=== PATIENT | male | born 2000 | race Caucasian/White ===

== ENCOUNTER 2019-12-10 15:42 | Outpatient (CLI) | payer OTHER ==
[2019-12-10] MEDS ORDERED: GADOBUTROL 7.5 MMOL/7.5 ML VIAL ONE (16:13)
[2019-12-10] MEDS ORDERED: GADOBUTROL 7.5 MMOL/7.5 ML VIAL IVP ONE (16:53)
--- NOTE | 2019-12-10 18:41 | MRI Report ---
PROCEDURE: Brain W/WO INDICATIONS: TINNITUS CONTRAST: IV CONTRAST: Gadavist ml: 7 TECHNIQUE: Noncontrast axial T1 spin echo, axial T2 fast spin echo, sagittal and axial FLAIR, coronal T2 fast sp in echo, axial gradient echo, axial diffusion and ADC through the brain. In this patient, thin sectio n FFE 3-D images were obtained through the internal auditory canals. After the administration of cont rast, axial and coronal T1 spin echo with fat saturation through the brain. COMPARISON: None. FINDINGS: Image quality: Excellent. CSF spaces: Basal cisterns are patent. No extra-axial fluid collections. Ventricles are normal in size and shape. Brain: In this patient with this given history, scrutiny is given to internal auditory canals and th e cerebellopontine angle cisterns. No masses or abnormal enhancement can be seen at these sites. No midline shift. No intracranial bleeds or masses. No abnormal intracranial enhancement. There is cerebral volume loss for age. There is periventricular white matter chronic small vessel ischemic c hange. The brainstem appears normal. Diffusion-weighted images demonstrate no acute ischemic insult s. No chronic ischemic insults. Normal intravascular flow voids are present. Skull and face: Calvarial marrow is normal in signal. Orbits appear normal. Sinuses: Sinuses and mastoids appear clear. IMPRESSION: A cause of the patient's tinnitus is not observed. Specifically, no findings of masses or abnormal enhancement can be seen within the internal auditory canals or within the cerebellopontine angle cisterns. Reviewed by: Hua Gómez MD on 12/10/2019 5:40 PM AUNG Approved by: Hua Gómez MD on 12/10/2019 5:40 PM AKSTANISLAW Station ID: [id number]
== END 2019-12-10 15:43 | disposition home or self-care (01) ==
LOC: DI 15:42
PROVIDERS: ATTEND Nurse Practitioner Family
DX: H93.13 Tinnitus, bilateral (principal)
CPT/HCPCS: 70553; A9585

== ENCOUNTER 2020-11-23 08:49 | Emergency (ER) | payer OTHER ==
[2020-11-23 09:15] LABS: BASOPHILS % (AUTO) 0.5 %; EOSINOPHILS # (AUTO) 0.3 10^3/uL (0.0-0.7); HGB - HEMOGLOBIN 16.3 g/dL (14.0-18.0); LYMPHOCYTES # (AUTO) 1.7 10^3/uL (1.5-3.5); LYMPHOCYTES % (AUTO) 22.1 %; MEAN CORPUSCULAR HEMOGLOBIN 30.4 pg (27.0-31.0); MEAN CORPUSCULAR HGB CONC 33.3 g/dL (32.0-36.0); MEAN CORPUSCULAR VOLUME 91.4 fL (80.0-94.0); MONOCYTES # (AUTO) 0.8 10^3/uL (0.0-1.0); MONOCYTES % (AUTO) 10.7 %; NEUTROPHILS # (AUTO) 4.8 10^3/uL (1.5-6.6); NEUTROPHILS % (AUTO) 62.6 %; PLT - PLATELET COUNT 317 10^3/uL (130-450); RED BLOOD COUNT 5.36 10^6/uL (4.70-6.10); WHITE BLOOD COUNT 7.6 x10^3/uL (4.8-10.8)
[2020-11-23 09:21] LABS: BILIRUBIN,URINE NEGATIVE (NEGATIVE); GLUCOSE, URINE (UA) NEGATIVE (NEGATIVE); KETONES,URINE (UA) NEGATIVE (NEGATIVE); LEUKOCYTE ESTERASE, URINE NEGATIVE (NEGATIVE); NITRITE,URINE NEGATIVE (NEGATIVE); OCCULT BLOOD,URINE TRACE-INTA (NEGATIVE); PROTEIN,URINE NEGATIVE (NEGATIVE); UROBILINOGEN,URINE 0.2 (NORMAL) E.U./dL (NORMAL)
[2020-11-23 09:22] LABS: CLARITY,URINE CLEAR (CLEAR)
[2020-11-23 09:31] LABS: ALBUMIN/GLOBULIN RATIO 1.6 (1.0-2.2); BILIRUBIN,TOTAL 1.1 mg/dL (0.2-1.0); CALCIUM 9.6 mg/dL (8.5-10.3); CREATININE 0.8 mg/dL (0.6-1.2); POTASSIUM 4.2 mmol/L (3.5-5.0); TOTAL PROTEIN 8.1 g/dL (6.7-8.2)
--- NOTE | 2020-11-23 09:42 | ED Physician Documentation ---
PD HPI ABD PAIN - Stated complaint Stated Complaint: PX IN LOWER RT ABD - Chief complaint Chief Complaint: Abd Pain - History obtained from History obtained from: Patient - History of Present Illness Pain level max: 6 Pain level now: 4 Quality: Pain. No: Cramping, Aching Location: RLQ Radiation: No: Chest, , Lower back, Left flank, Left shoulder, Right flank, Right shoulder, Upper back Associated symptoms: No: Fever, Nausea, Vomiting, Diarrhea, Constipation - Additional information Additional information: Patient is a 20-year-old male who complains of right lower quadrant abdominal pain for the past 2 days. Worse with movement, better with rest. No change in appetite. No fevers. No nausea or vomiting. Nonradiating. Has not had similar symptoms previously. Review of Systems Ten Systems: 10 systems reviewed and negative Constitutional: denies: Fever, Chills Respiratory: denies: Cough GI: denies: Vomiting Skin: denies: Rash Musculoskeletal: denies: Neck pain, Back pain Neurologic: denies: Headache PD PAST MEDICAL HISTORY - Past Medical History Past Medical History: Yes Cardiovascular: Hypertension Respiratory: None Neuro: None Endocrine/Autoimmune: None GI: None : None HEENT: None Psych: None Musculoskeletal: None Derm: None - Past Surgical History Past Surgical History: No - Present Medications Home Medications: Ambulatory Orders Medication Instructions Recorded Confirmed Lisinopril [Zestril] 10 mg PO DAILY 11/23/20 11/23/20 - Allergies Allergies/Adverse Reactions: Allergies Allergy/AdvReac Type Severity Reaction Status Date / Time No Known Drug Allergies Allergy Verified 11/23/20 08:55 - Social History Does the pt smoke?: No Smoking Status: Never smoker Does the pt drink ETOH?: No Does the pt have substance abuse?: No - Immunizations Immunizations are current?: No Immunizations: Other immun not current PD ED PE NORMAL - Vitals Vital signs reviewed: Yes - General General: Alert and oriented X 3, No acute distress - HEENT HEENT: Moist mucous membranes - Neck Neck: Supple, no meningeal sign - Cardiac Cardiac: RRR, Strong equal pulses - Respiratory Respiratory: No respiratory distress, Clear bilaterally - Abdomen Abdomen: Soft, Non distended, Other (Tender palpation right lower quadrant. No peritoneal signs.) - Back Back: No CVA TTP - Derm Derm: Warm and dry - Extremities Extremities: No edema, No calf tenderness / cord - Neuro Neuro: Alert and oriented X 3 - Psych Psych: Normal mood, Normal affect Results - Vitals Vitals: Vital Signs - 24 hr 11/23/20 11/23/20 11/23/20 08:56 09:12 09:48 Temperature 36.5 C Heart Rate 91 88 80 Respiratory 18 18 16 Rate Blood Pressure 130/78 126/73 118/71 O2 Saturation 100 98 98 11/23/20 11:30 Temperature Heart Rate 83 Respiratory 16 Rate Blood Pressure 134/87 H O2 Saturation 100 Oxygen O2 Source Room air - Labs Labs: Laboratory Tests 11/23/20 11/23/20 11/23/20 09:05 09:05 09:05 WBC 7.6 RBC 5.36 Hgb 16.3 Hct 49.0 MCV 91.4 MCH 30.4 MCHC 33.3 RDW 13.0 Plt Count 317 MPV 9.0 Neut # (Auto) 4.8 Lymph # (Auto) 1.7 Mower # (Auto) 0.8 Eos # (Auto) 0.3 Baso # (Auto) 0.0 Absolute Nucleated RBC 0.00 Nucleated RBC % 0.0 Sodium 137 Potassium 4.2 Chloride 96 L Carbon Dioxide 32 Anion Gap 9.0 BUN 11 Creatinine 0.8 Estimated GFR (MDRD) 121 Glucose 92 Calcium 9.6 Total Bilirubin 1.1 H AST 28 ALT 42 Alkaline Phosphatase 73 Total Protein 8.1 Albumin 5.0 Globulin 3.1 Albumin/Globulin Ratio 1.6 Lipase 28 Urine Color YELLOW Urine Clarity CLEAR Urine pH 7.0 Ur Specific [place] 1.020 Urine Protein NEGATIVE Urine Glucose (UA) NEGATIVE Urine Ketones NEGATIVE Urine Occult Blood TRACE-INTA Urine Nitrite NEGATIVE Urine Bilirubin NEGATIVE Urine Urobilinogen 0.2 (NORMAL) Ur Leukocyte Esterase NEGATIVE Ur Microscopic Review NOT INDICATED Urine Culture Comments NOT INDICATED - Rads (name of study) CT abd/pelvis Radiology: Final report received, EMP read contemporaneously, See rad report PD MEDICAL DECISION MAKING - ED course Complexity details: reviewed results, re-evaluated patient, considered differential, d/w patient ED course: 20-year-old male with right lower quadrant abdominal pain. The appendix is not identified. Could be epiploic appendagitis? Discussed the case with Dr. Rosenbaum, general surgery on-call who came and evaluated the patient personally. The patient is decided to go home at this time and see how he progresses over the next 24 hours. No indication for antibiotics at this time. Patient will return tomorrow for repeat evaluation and repeat blood work. If he worsens, he will return sooner. Patient is well-appearing, nontoxic. Afebrile. Patient counseled regarding signs and symptoms for which I believe and urgent re- evaluation would be necessary. Patient with good understanding of and agreement to plan and is comfortable going home at this time This document was made in part using voice recognition software. While efforts are made to proofread this document, sound alike and grammatical errors may occur. IMPRESSION: 1. The appendix is not identified. There is a small amount of free fluid present in the right lower quadrant. There is mild inflammatory change in the fat near the cecum. Consider epiploic appendicitis. Cannot exclude appendiceal rupture. Recommend clinical correlation. Departure - Departure Disposition: 01 Home, Self Care Clinical Impression: Abdominal pain Qualifiers: Abdominal location: right lower quadrant Qualified Code(s): R10.31 - Right lower quadrant pain Condition: Good Instructions: ED Abdominal Pain Appendx Poss Follow-Up: here,tomorrow [Other] Comments: Return here tomorrow for a recheck of your abdomen and a recheck of your white blood cell count. Return sooner if you worsen. Discharge Date/Time: 11/23/20 12:00
[2020-11-23] MEDS ORDERED: IOPAMIDOL-300 50 ML VIAL ONE (09:49)
[2020-11-23] MEDS ORDERED: IOPAMIDOL-300 50 ML VIAL IVP ONE (10:06)
--- NOTE | 2020-11-23 11:25 | CT Report ---
PROCEDURE: Abdomen/Pelvis W INDICATIONS: RLQ abd pain CONTRAST: IV CONTRAST: Isovue 300 ml: 100 PO CONTRAST: *NO PO CONTRAST TECHNIQUE: After the administration of intravenous contrast, 5 mm thick sections acquired from the diaphragms to the symphysis. 5 mm thick coronal and sagittal reformats were acquired. For radiation dose reducti on, the following was used: automated exposure control, adjustment of mA and/or kV according to winston ent size. COMPARISON: None. FINDINGS: Image quality: Excellent. ABDOMEN: Lung bases: Lung bases are clear. Heart size is normal. Solid organs: Liver and spleen are normal in size and enhancement. Gallbladder is unremarkable Blayne iary system is non dilated. Pancreas enhances normally. No adrenal nodules. Kidneys demonstrate no rmal size and enhancement, without hydronephrosis. Peritoneum and bowel: Bowel loops demonstrate normal wall thickness and caliber. The appendix is not identified. There is trace fluid adjacent to the cecum. There is no obvious bowel wall thickening. T here is mild inflammatory change in the fat near the cecum. No fluid deep in the pelvis. No free air or abscess cavity. Nodes and vessels: There are mildly prominent lymph nodes in the right lower quadrant. No retroperit nash or mesenteric adenopathy by size criteria. Aorta and inferior vena cava are normal in size. Miscellaneous: No ventral hernias. PELVIS: Genitourinary: Bladder wall thickness is normal. Miscellaneous: No inguinal hernias or adenopathy. Bones: No suspicious bony lesions. No vertebral body compression fractures. IMPRESSION: 1. The appendix is not identified. There is a small amount of free fluid present in the right lower q uadrant. There is mild inflammatory change in the fat near the cecum. Consider epiploic appendicitis. Cannot exclude appendiceal rupture. Recommend clinical correlation. Above discussed with Azar Ko MD at the time of dictation. Reviewed by: Charles Hinton MD on 11/23/2020 11:24 AM PDT Approved by: Charles Hinton MD on 11/23/2020 11:24 AM PDT Station ID: [id number]
[2020-11-23 11:31] VITALS: BP 134/87
--- NOTE | 2020-11-23 12:17 | CONSULTATION NOTE ---
Surgery Consult - Consult Date Consult Date: 11/23/20 Requesting Provider: Maikel - Chief Complaint Chief Complaint: Right lower quadrant abdominal pain - Home Meds/Allergies Home Medications: Patient History Medication Instructions Recorded Confirmed Lisinopril [Zestril] 10 mg PO DAILY 11/23/20 11/23/20 Allergies/Adverse Reactions: Allergies Allergy/AdvReac Type Severity Reaction Status Date / Time No Known Drug Allergies Allergy Verified 11/23/20 08:55 - Vital Signs Vital Signs: Last Vital Signs Temp 36.5 C 11/23/20 08:56 Pulse 83 11/23/20 11:30 Resp 16 11/23/20 11:30 BP 134/87 H 11/23/20 11:30 Pulse Ox 100 11/23/20 11:30 - Lab Results Result Diagrams: 11/23/20 09:05 11/23/20 09:05 - Consultation Note Consultation Note: 20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 No vomiting or fever. Mild nausea. Pain has persisted. No previous abdominal surgery. Mother has IBS, but no hx of Crohn's or IBD in family. PMH: HTN Past surgery: none Exam: Afebrile, no distress CV: RRs M Lungs: clear Abdomen: not distended, tenderness in RLQ, negative Rovsing's sign, no mass, no guarding or rigidity. CT abd/pelvis: mild inflammation by cecum, but appendix not visualized ASSESS: Possible appendicitis. WBC normal, CT does not clearly show inflamed appendix. Discussed lap appendectomy with patient, and encouraged him to have surgery. After he discussed options with his on the phone, he decided to go home and return if pain worsens. After discussing with Dr Ko, patient will return tomorrow for reexam and CBC.
== END 2020-11-23 12:00 | disposition home or self-care (01) ==
LOC: ED 08:49
DX: R10.31 Right lower quadrant pain (principal); I10 Essential (primary) hypertension
CPT/HCPCS: 36415; 74177; 80053; 81003; 83690; 85025; 99284; Q9967; 81001; 87086

== ENCOUNTER 2020-11-24 09:56 | Day surgery (SDC) | payer OTHER ==
[2020-11-24 10:53] LABS: BASOPHILS % (AUTO) 0.4 %; EOSINOPHILS # (AUTO) 0.3 10^3/uL (0.0-0.7); EOSINOPHILS % (AUTO) 3.9 %; HCT - HEMATOCRIT 46.8 % (42.0-52.0); HGB - HEMOGLOBIN 15.5 g/dL (14.0-18.0); LYMPHOCYTES # (AUTO) 1.5 10^3/uL (1.5-3.5); LYMPHOCYTES % (AUTO) 22.1 %; MEAN CORPUSCULAR HEMOGLOBIN 30.2 pg (27.0-31.0); MEAN CORPUSCULAR HGB CONC 33.1 g/dL (32.0-36.0); MEAN CORPUSCULAR VOLUME 91.2 fL (80.0-94.0); MEAN PLATELET VOLUME 8.8 fL (7.4-11.4); MONOCYTES # (AUTO) 0.7 10^3/uL (0.0-1.0); MONOCYTES % (AUTO) 9.6 %; NEUTROPHILS # (AUTO) 4.5 10^3/uL (1.5-6.6); NEUTROPHILS % (AUTO) 63.7 %; PLT - PLATELET COUNT 296 10^3/uL (130-450); RED BLOOD COUNT 5.13 10^6/uL (4.70-6.10)
[2020-11-24 11:08] LABS: ALBUMIN 4.4 g/dL (3.2-5.5); ALBUMIN/GLOBULIN RATIO 1.4 (1.0-2.2); BILIRUBIN,TOTAL 0.7 mg/dL (0.2-1.0); CALCIUM 9.4 mg/dL (8.5-10.3); CREATININE 1.1 mg/dL (0.6-1.2); POTASSIUM 4.4 mmol/L (3.5-5.0); TOTAL PROTEIN 7.5 g/dL (6.7-8.2)
--- NOTE | 2020-11-24 11:43 | ED Physician Documentation ---
PD HPI ABD PAIN - Stated complaint Stated Complaint: LOWER RT ABD PX - Chief complaint Chief Complaint: Abd Pain - History obtained from History obtained from: Patient - History of Present Illness Timing - onset: How many days ago (4) Timing - duration: Days (4) Timing - details: Gradual onset, Still present Quality: Sharp, Pain Location: RLQ Improved by: Laying still Worsened by: Moving, Position, Palpation Associated symptoms: No: Nausea, Vomiting, Diarrhea, Constipation, Loss of appetite Similar symptoms before: Diagnosis (none resolved after 2 weeks.) Recently seen: Emergency Dept (yesterday) - Additional information Additional information: 20-year-old male with right lower quadrant abdominal pain for the past 4 days presented to the emergency department yesterday for evaluation had a CT scan done which showed some trace amount of free fluid in the right lower quadrant without visualizing the appendix. The patient was evaluated by surgery and asked to return to the emergency department should he have increasing pain he is come back for reevaluation today with increased pain. He reports a prior history of a similar incident that lasted about 2 weeks a number of years ago. Review of Systems Constitutional: denies: Fever Eyes: denies: Decreased vision Ears: denies: Ear pain Nose: denies: Congestion Throat: denies: Sore throat Cardiac: denies: Chest pain / pressure, Palpitations Respiratory: denies: Dyspnea, Cough GI: reports: Abdominal Pain. denies: Abdominal Swelling, Nausea, Vomiting, Constipation, Diarrhea : denies: Dysuria, Frequency PD PAST MEDICAL HISTORY - Past Medical History Cardiovascular: Hypertension Respiratory: None Neuro: None Endocrine/Autoimmune: None GI: None : None HEENT: None Psych: None Musculoskeletal: None Derm: None - Past Surgical History Past Surgical History: No - Present Medications Home Medications: Ambulatory Orders Medication Instructions Recorded Confirmed Lisinopril [Zestril] 10 mg PO DAILY 11/23/20 11/23/20 - Allergies Allergies/Adverse Reactions: Allergies Allergy/AdvReac Type Severity Reaction Status Date / Time No Known Drug Allergies Allergy Verified 11/24/20 10:03 - Social History Does the pt smoke?: No Smoking Status: Never smoker Does the pt drink ETOH?: No Does the pt have substance abuse?: No - Immunizations Immunizations are current?: No Immunizations: Other immun not current PD ED PE NORMAL - Vitals Vital signs reviewed: Yes (hypertensive ) - General General: Alert and oriented X 3, No acute distress, Well developed/nourished - HEENT HEENT: Atraumatic, PERRL, EOMI - Neck Neck: Supple, no meningeal sign, No bony TTP - Cardiac Cardiac: RRR, No murmur - Respiratory Respiratory: No respiratory distress, Clear bilaterally - Abdomen Abdomen: Soft, Non distended, No organomegaly, Other (decreased bowel sounds tender to the RLQ without referred tenderness to the RLQ. Pain to RLQ with movement sitting up etc. ) - Back Back: No CVA TTP, No spinal TTP - Derm Derm: Normal color, Warm and dry, No rash - Extremities Extremities: No deformity, No edema - Neuro Neuro: Alert and oriented X 3, blade filer 2-12 intact, No motor deficit, No sensory deficit, Normal speech Eye Opening: Spontaneous Motor: Obeys Commands Verbal: Oriented GCS Score: 15 - Psych Psych: Normal mood, Normal affect Results - Vitals Vitals: Vital Signs - 24 hr 11/24/20 11/24/20 10:01 10:02 Temperature 36.6 C 36.6 C Heart Rate 89 89 Respiratory 16 16 Rate Blood Pressure 142/77 H 142/77 H O2 Saturation 100 100 Oxygen O2 Source Room air - Labs Labs: Laboratory Tests 11/24/20 11/24/20 10:47 10:47 WBC 7.0 RBC 5.13 Hgb 15.5 Hct 46.8 MCV 91.2 MCH 30.2 MCHC 33.1 RDW 13.0 Plt Count 296 MPV 8.8 Neut # (Auto) 4.5 Lymph # (Auto) 1.5 [place] # (Auto) 0.7 Eos # (Auto) 0.3 Baso # (Auto) 0.0 Absolute Nucleated RBC 0.00 Nucleated RBC % 0.0 Sodium 138 Potassium 4.4 Chloride 100 L Carbon Dioxide 29 Anion Gap 9.0 BUN 16 Creatinine 1.1 Estimated GFR (MDRD) 84 L Glucose 90 Calcium 9.4 Total Bilirubin 0.7 AST 19 ALT 33 Alkaline Phosphatase 73 Total Protein 7.5 Albumin 4.4 Globulin 3.1 Albumin/Globulin Ratio 1.4 Lipase 27 PD MEDICAL DECISION MAKING - ED course Complexity details: reviewed old records, reviewed results, re-evaluated patient, considered differential, d/w patient ED course: Previously well 20-year-old male returns to the emergency department with acute right lower quadrant abdominal pain he has tenderness specifically he is still continuing to eat and has normal white blood cell count. His exam was concerning for appendicitis and he did have some evidence of free fluid on his CT scan done from yesterday and which they were not able to identify the appendix. He was seen by surgery and a plan was made for followup. Overnight the patient has had increased symptoms and today on examination he continues to have specific right lower quadrant tenderness and the surgeon Dr. Gross is consulted in the case she comes to the emergency department and evaluates the patient and she will take him to the operating room today for diagnostic laparos copy. Departure - Departure Disposition: ED Transfer to [facility] Clinical Impression: Abdominal pain Qualifiers: Abdominal location: right lower quadrant Qualified Code(s): R10.31 - Right lower quadrant pain Condition: Stable
[2020-11-24] MEDS ORDERED: PIPERACILLIN/TAZOBACTAM 3.375 GM in SODIUM CHLORIDE 0.9% MINIBAG 100 ML IV STA (13:03)
[2020-11-24] MEDS ORDERED: BUPIVACAINE 0.25% PF 30 ML VIAL ONE (13:47)
[2020-11-24] MEDS ORDERED: LIDOCAINE 2%-EPI 1:100000 20 ML MDV ONE (13:47)
--- NOTE | 2020-11-24 14:36 | ANESTHESIA ---
Pre-Anesthesia VS, & Labs - Diagnosis abdominal pain - Procedure Diagnostic laparoscopy Vital Signs: Temp Pulse Resp BP Pulse Ox 37.3 C 82 12 110/63 100 11/24/20 14:15 11/24/20 14:15 11/24/20 14:15 11/24/20 14:15 11/24/20 14:15 Height: 5 ft 5 in Weight (kg): 76.657 kg Body Mass Index: 28.1 BMI Classification: Overweight - NPO >8 hours - Lab Results Current Lab Results: Laboratory Tests 11/24/20 10:47: Sodium 138, Potassium 4.4, Chloride 100 L, Carbon Dioxide 29, Anion Gap 9.0, BUN 16, Creatinine 1.1, Estimated GFR (MDRD) 84 L, Glucose 90, Calcium 9.4, Total Bilirubin 0.7, AST 19, ALT 33, Alkaline Phosphatase 73, Total Protein 7.5, Albumin 4.4, Globulin 3.1, Albumin/Globulin Ratio 1.4, Lipase 27 11/24/20 10:47: WBC 7.0, RBC 5.13, Hgb 15.5, Hct 46.8, MCV 91.2, MCH 30.2, MCHC 33.1, RDW 13.0, Plt Count 296, MPV 8.8, Neut # (Auto) 4.5, Lymph # (Auto) 1.5, [place] # (Auto) 0.7, Eos # (Auto) 0.3, Baso # (Auto) 0.0, Absolute Nucleated RBC 0.00, Nucleated RBC % 0.0 Lab results reviewed: Yes Fish Bones: 11/24/20 10:47 11/24/20 10:47 Home Medications and Allergies Lisinopril [Zestril] 10 mg PO DAILY 11/23/20 Allergies/Adverse Reactions: Allergies Allergy/AdvReac Type Severity Reaction Status Date / Time No Known Drug Allergies Allergy Verified 11/24/20 10:03 Anes History & Medical History - Anesthetic History Anesthesia Complications: reports: No previous complications Family history of Anesthesia Complications: Denies Family history of Malignant Hyperthermia: Denies - Medical History Cardiovascular: reports: Hypertension Pulmonary: reports: None Gastrointestinal: reports: None Urinary: reports: None Neuro: reports: None Musculoskeletal: reports: None Endocrine/Autoimmune: reports: None Blood Disorders: reports: None Skin: reports: None Smoking Status: Never smoker Exam General: Alert, Oriented x3, Cooperative, No acute distress Dental: WNL Mouth Openin Fingerbreadth Neck Mobility: Normal Mallampati classification: I Respiratory: Lungs clear, Normal breath sounds, No respiratory distress, No accessory muscle use Cardiovascular: Regular rate, Normal S1, Normal S2, No murmurs Plan Anesthesia Type: General Consent for Procedure(s) Verified and Reviewed: Yes Code Status: Attempt Resuscitation ASA classification: 2-Mild systemic disease Is this case an emergency?: No
[2020-11-24] MEDS ORDERED: LIDOCAINE-MPF 2% 5 ML VIAL ONE (15:50)
[2020-11-24] MEDS ORDERED: ONDANSETRON 4 MG/2 ML VIAL ONE (15:50)
[2020-11-24] MEDS ORDERED: fentaNYL 100 MCG/2 ML VIAL ONE (15:50)
[2020-11-24] MEDS ORDERED: DEXAMETHASONE 4 MG/ML VIAL ONE (15:50)
[2020-11-24] MEDS ORDERED: MIDAZOLAM 2 MG/2 ML VIAL ONE (15:50)
[2020-11-24] MEDS ORDERED: KETOROLAC 30 MG/ML VIAL ONE (15:50)
[2020-11-24] MEDS ORDERED: PROPOFOL 200 MG/20 ML VIAL IVP ONE (15:50)
[2020-11-24] MEDS ORDERED: ROCURONIUM 50 MG/5 ML VIAL ONE (15:50)
[2020-11-24 16:27] LABS: B. PARAPERTUSSIS- RESP PCR PAN NOT DETECTED; B. PERTUSSIS- RESP PCR PANEL NOT DETECTED; C. PNEUMONIAE- RESP PCR PANEL NOT DETECTED; CORONAVIRUS 229E-RESP PCR NOT DETECTED; CORONAVIRUS HKU1-RESP PCR NOT DETECTED; CORONAVIRUS NL63-RESP PCR NOT DETECTED; CORONAVIRUS OC43-RESP PCR NOT DETECTED; HUMAN METAPNEUMOVIRUS NOT DETECTED; INFLUENZA A- RESP PCR PANEL NOT DETECTED; INFLUENZA B - RESP PCR PANEL NOT DETECTED; M. PNEUMONIAE- RESP PCR PANEL NOT DETECTED; PARAINFLUENZA VIRUS 1 NOT DETECTED; PARAINFLUENZA VIRUS 2 NOT DETECTED; PARAINFLUENZA VIRUS 3 NOT DETECTED; PARAINFLUENZA VIRUS 4 NOT DETECTED; RHINOVIRUS/ENTEROVIRUS NOT DETECTED; RSV- RESP PCR PANEL NOT DETECTED; SARS-CoV-2 -RESP PCR PANEL NOT DETECTED
--- NOTE | 2020-11-24 16:52 | HISTORY & PHYSICAL EXAMINATION ---
HPI - Admitted From Admitted from: ED - History Obtained From History obtained from: Patient Exam limitations: No limitations - History of Present Illness Severity at the worst: reports: Moderate, Severe Pain Quality: reports: Sharp, Aching Context-Pain started w/: reports: Rest Timing: reports: Gradual onset Duration: reports: Days: (2) Improved with: reports: Rest, Home medication Worsened by: reports: Exertion, Inspiration, Movement, Palpation Associated symptoms: denies: Nausea, Vomiting HPI Comment/Other: Pleasant 20-year-old gentleman seen in the emergency room last evening by Dr. Rosenbaum complaining of right lower quadrant pain. He was evaluated with labs CT scan and abdominal exam. CT scan was remarkable for perhaps a little bit of extra fluid in the right lower quadrant but no definite siding of the appendix. Certainly no definite appendiceal inflammation. He was given the choice to stay for serial exams or to go home. He elected to go home but returned today stating that his pain was at least as bad and possibly worse than it had been yesterday. He reports that he had a similar episode about 5 years ago that resolved after 2 weeks. He denies any family history of inflammatory bowel disease. He reports his mother has diverticulosis. He has not been febrile at home. He has continued to eat even while his pain has become more severe. He denies any diarrhea. He continues to have bowel movements. PMH/PSH - Past Medical History Cardiovascular: positive: Hypertension Respiratory: positive: None Neuro: positive: None Endocrine/Autoimmune: positive: None GI: positive: None : positive: None HEENT: positive: None Psych: positive: None Musculoskeletal: positive: None Derm: positive: None MRSA Hx?: No Social & Family Hx - Social History Does the pt smoke?: No Smoking Status: Never smoker Does the pt drink ETOH?: No Does the pt have substance abuse?: No - POLST Patient has POLST: No Meds/Allgy - Home Medications Home Medications: Ambulatory Orders Medication Instructions Recorded Confirmed Lisinopril [Zestril] 10 mg PO DAILY 11/23/20 11/23/20 - Allergies Allergies/Adverse Reactions: Allergies Allergy/AdvReac Type Severity Reaction Status Date / Time No Known Drug Allergies Allergy Verified 11/24/20 10:03 Review of Systems - Constitutional Constitutional: reports: Fatigue. denies: Fever, Chills - Gastrointestinal Gastrointestinal: reports: Abdominal pain. denies: Change in bowel habits, Black stools, Bloody stools, Nausea, Vomiting - Genitourinary Genitourinary: denies: Dysuria, Frequency, Urgency - Integumentary Integumentary: denies: Rash - Neurological Neurological: denies: General weakness, Focal weakness Exam - Vital Signs Reviewed Vital Signs: Yes Vital Signs: Vital Signs x48h Temp Pulse Resp BP Pulse Ox 11/24/20 16:14 82 22 127/93 H 99 11/24/20 14:15 37.3 C 82 12 110/63 100 11/24/20 10:02 36.6 C 89 16 142/77 H 100 11/24/20 10:01 36.6 C 89 16 142/77 H 100 - Physical Exam General Appearance: positive: No acute distress, Alert Eyes Bilateral: positive: Normal inspection, PERRL, EOMI ENT: positive: ENT inspection nml, Pharynx nml, No signs of dehydration Neck: positive: Nml inspection, No JVD Respiratory: positive: Chest non-tender, No respiratory distress, Breath sounds nml Cardiovascular: positive: Regular rate & rhythm, No murmur Peripheral Pulses: positive: 2+ Abdomen: positive: Nml bowel sounds, No distention, Tenderness, Guarding, Rebound Back: positive: Nml inspection Skin: positive: Color nml, No rash Extremities: positive: Non-tender, Full ROM Neurologic/Psychiatric: positive: Oriented x3 Results - Lab Results Fish Bones: 11/24/20 10:47 11/24/20 10:47 Other Lab Results: Lab Results x24hrs 11/24/20 11/24/20 11/24/20 Range/Units 14:19 14:19 10:47 WBC (4.8-10.8) x10^3/uL RBC (4.70-6.10) 10^6/uL Hgb (14.0-18.0) g/dL Hct (42.0-52.0) % MCV (80.0-94.0) fL MCH (27.0-31.0) pg MCHC (32.0-36.0) g/dL RDW (12.0-15.0) % Plt Count (130-450) 10^3/uL MPV (7.4-11.4) fL Neut # (Auto) (1.5-6.6) 10^3/uL Lymph # (Auto) (1.5-3.5) 10^3/uL [place] # (Auto) (0.0-1.0) 10^3/uL Eos # (Auto) (0.0-0.7) 10^3/uL Baso # (Auto) (0.0-0.1) 10^3/uL Absolute Nucleated RBC x10^3/uL Nucleated RBC % /100WBC Sodium 138 (135-145) mmol/L Potassium 4.4 (3.5-5.0) mmol/L Chloride 100 L (101-111) mmol/L Carbon Dioxide 29 (21-32) mmol/L Anion Gap 9.0 (6-13) BUN 16 (6-20) mg/dL Creatinine 1.1 (0.6-1.2) mg/dL Estimated GFR (MDRD) 84 L (>89) Glucose 90 (70-100) mg/dL Calcium 9.4 (8.5-10.3) mg/dL Total Bilirubin 0.7 (0.2-1.0) mg/dL AST 19 (10-42) IU/L ALT 33 (10-60) IU/L Alkaline Phosphatase 73 (42-121) IU/L Total Protein 7.5 (6.7-8.2) g/dL Albumin 4.4 (3.2-5.5) g/dL Globulin 3.1 (2.1-4.2) g/dL Albumin/Globulin Ratio 1.4 (1.0-2.2) Lipase 27 (22-51) U/L Nasal Adenovirus (PCR) NOT DETECTED Nasal B. parapertussis DNA (PCR) NOT DETECTED Nasal Coronavir 229E PCR NOT DETECTED Nasal Coronavir HKU1 PCR NOT DETECTED Nasal Coronavir NL63 PCR NOT DETECTED Nasal Coronavir OC43 PCR NOT DETECTED Nasal Enterovir/Rhinovir PCR NOT DETECTED Nasal Influenza B PCR NOT DETECTED Nasal Influenza A PCR NOT DETECTED Nasal Parainfluen 1 PCR NOT DETECTED Nasal Parainfluen 2 PCR NOT DETECTED Nasal Parainfluen 3 PCR NOT DETECTED Nasal Parainfluen 4 PCR NOT DETECTED Nasal RSV (PCR) NOT DETECTED Nasal B.pertussis DNA PCR NOT DETECTED Nasal C.pneumoniae (PCR) NOT DETECTED Ganesh Human Metapneumo PCR NOT DETECTED Nasal M.pneumoniae (PCR) NOT DETECTED Nasal SARS-CoV-2 (PCR) NOT DETECTED SARS-CoV-2 (PCR) NOT DETECTED 11/24/20 Range/Units 10:47 WBC 7.0 (4.8-10.8) x10^3/uL RBC 5.13 (4.70-6.10) 10^6/uL Hgb 15.5 (14.0-18.0) g/dL Hct 46.8 (42.0-52.0) % MCV 91.2 (80.0-94.0) fL MCH 30.2 (27.0-31.0) pg MCHC 33.1 (32.0-36.0) g/dL RDW 13.0 (12.0-15.0) % Plt Count 296 (130-450) 10^3/uL MPV 8.8 (7.4-11.4) fL Neut # (Auto) 4.5 (1.5-6.6) 10^3/uL Lymph # (Auto) 1.5 (1.5-3.5) 10^3/uL [place] # (Auto) 0.7 (0.0-1.0) 10^3/uL Eos # (Auto) 0.3 (0.0-0.7) 10^3/uL Baso # (Auto) 0.0 (0.0-0.1) 10^3/uL Absolute Nucleated RBC 0.00 x10^3/uL Nucleated RBC % 0.0 /100WBC Sodium (135-145) mmol/L Potassium (3.5-5.0) mmol/L Chloride (101-111) mmol/L Carbon Dioxide (21-32) mmol/L Anion Gap (6-13) BUN (6-20) mg/dL Creatinine (0.6-1.2) mg/dL Estimated GFR (MDRD) (>89) Glucose (70-100) mg/dL Calcium (8.5-10.3) mg/dL Total Bilirubin (0.2-1.0) mg/dL AST (10-42) IU/L ALT (10-60) IU/L Alkaline Phosphatase (42-121) IU/L Total Protein (6.7-8.2) g/dL Albumin (3.2-5.5) g/dL Globulin (2.1-4.2) g/dL Albumin/Globulin Ratio (1.0-2.2) Lipase (22-51) U/L Nasal Adenovirus (PCR) Nasal B. parapertussis DNA (PCR) Nasal Coronavir 229E PCR Nasal Coronavir HKU1 PCR Nasal Coronavir NL63 PCR Nasal Coronavir OC43 PCR Nasal Enterovir/Rhinovir PCR Nasal Influenza B PCR Nasal Influenza A PCR Nasal Parainfluen 1 PCR Nasal Parainfluen 2 PCR Nasal Parainfluen 3 PCR Nasal Parainfluen 4 PCR Nasal RSV (PCR) Nasal B.pertussis DNA PCR Nasal C.pneumoniae (PCR) Ganesh Human Metapneumo PCR Nasal M.pneumoniae (PCR) Nasal SARS-CoV-2 (PCR) SARS-CoV-2 (PCR) - Diagnostic Imaging Results Diagnostic Imaging Results: positive: Final report reviewed Diagnostic Imaging Results Comments: Small amount of free fluid in the right lower quadrant seen on CT scan of the abdomen pelvis dated 11/23/2020. No evidence of abscess. Inflammation is seen around the cecum and some fat stranding is seen in the region as well. Impression/Plan - Problem List Problem List: Likely early acute appendicitis in the setting of a healthy 20-year-old gentleman.We discussed the risks of finding something unexpected such as Crohn's colitis or inflammatory bowel disease or some other pathology. This is possible though not likely in this setting. I have recommended laparoscopy with appendectomy and indicated procedures. The patient is expressed an understanding of the risks and benefits of the procedure and a desire to schedule and complete today.
[2020-11-24] MEDS ORDERED: SUGAMMADEX 200 MG/2 ML VIAL IVP ONE (17:17)
[2020-11-24] MEDS ORDERED: BUPIVACAINE 0.25% PF 30 ML VIAL SUBQ ONE (17:20)
[2020-11-24] MEDS ORDERED: LIDOCAINE 2%-EPI 1:100000 20 ML MDV SUBQ ONE (17:21)
[2020-11-24] MEDS ORDERED: IBUPROFEN 600 MG TABLET PO PRN (17:40)
[2020-11-24] MEDS ORDERED: LACTATED RINGERS 1,000 ML IV ONE ×2 (17:40→18:22)
[2020-11-24] MEDS ORDERED: oxyCODONE 5 MG TABLET PO PRN (17:40)
[2020-11-24] MEDS ORDERED: ONDANSETRON 4 MG/2 ML VIAL IVP PRN ×2 (17:40→18:06)
[2020-11-24] MEDS ORDERED: ACETAMINOPHEN 325 MG TABLET PO PRN (17:40)
--- NOTE | 2020-11-24 17:40 | OPERATIVE REPORT ---
Operative Report - General Procedure Date: 11/24/20 Planned Procedure: Laparoscopy with appendectomy and indicated procedures Pre-Op Diagnosis: Right lower quadrant pain Procedure Performed: Laparoscopy with appendectomy Post Op Diagnosis: Early acute appendicitis - Procedure Note Primary Surgeon: Emigdio Anesthesia Provider: CHANDNI Johnson Anesthesia Technique: General ET tube Pathology: Appendix to pathology in formalin Estimated Blood Loss (mL): 5 Findings: Grossly normal-appearing appendix with minimal surrounding inflammation Complications: None apparent - Other Other Information/Narrative: After obtaining informed consent, the patient is brought to the operating room and placed in the supine position on the operating table. Following successful induction of general endotracheal anesthesia, appropriate padding of all bony prominences, and placement of appropriate monitors, the abdomen was prepped and draped in the standard surgical fashion. A timeout was held per scope protocol. All elements of the surgical safety checklist were followed before, during, and after the procedure. Following infiltration with local anesthetic to create a field block, an incision was created inferior to the umbilicus and carried down through the skin and subcutaneous tissue to reveal the fascia below. 2-0 Vicryl retention sutures were placed on either side of the midline and the abdomen was entered under direct vision using a 15 blade scalpel. A 10 mm blunt Mendez balloon trocar was placed in the abdominal cavity and it was insufflated to 15 mmHg pressure. The patient was placed in Trendelenburg position with the left side rotated toward the floor. The camera was placed in the abdominal cavity and we immediately visualized the cecum in the right lower quadrant. It was rotated medially to reveal a mildly dilated and turgid appendix. The appendix was grasped and elevated revealing its attachment to the cecum. A window was created in the mesoappendix at this location. A laparoscopic stapling device was used to ligate the appendix and liberated from its attachment to the cecum. An additional load of the device were used to divide its mesentery.The appendix was placed in an Endo Catch bag and removed via the umbilical port with a camera in the epigastric position. The camera was replaced in the operative site examined. It was irrigated with warm saline solution and aspirated free of all fluid and particulate matter. The table was flattened and the abdomen evaluated once again. The trochars were removed under direct vision and abdomen was desufflated. The umbilical incision was closed with interrupted Vicryl suture and Monocryl stitches were placed in the skin. All sponge, needles, and instrument counts were correct at the conclusion of the case. The patient was allowed to wake from anesthesia without difficulty and taken to the postanesthesia care unit in good condition.
--- NOTE | 2020-11-24 17:55 | ANESTHESIA POST OP EVALUATION ---
Anesthesia Post Eval - Post Anesthesia Eval Vitals: Last Vital Signs Temp 37 C 11/24/20 17:40 Pulse 100 11/24/20 17:50 Resp 14 11/24/20 17:50 BP 124/62 11/24/20 17:50 Pulse Ox 100 11/24/20 17:50 CV Function Including HR & BP: Stable Pain Control: Satisfactory Nausea & Vomiting: Negative Mental Status: Baseline Respiratory Status: Airway Patent Hydration Status: Satisfactory Anesthesia Complications: None
[2020-11-24] MEDS ORDERED: ACETAMINOPHEN 1,000 MG/100 ML 100 ML IV ONE ×2 (18:03→18:07)
[2020-11-24] MEDS ORDERED: ePHEDrine 50 MG/ML VIAL IVP PRN (18:06)
[2020-11-24] MEDS ORDERED: ATROPINE ABBOJECT 1 MG/10 ML SYRINGE IVP PRN (18:06)
[2020-11-24] MEDS ORDERED: MORPHINE 2 MG/ML CARPUJECT IVP PRN (18:06)
[2020-11-24] MEDS ORDERED: METOCLOPRAMIDE 10 MG/2 ML VIAL IVP PRN (18:06)
[2020-11-24] MEDS ORDERED: fentaNYL 100 MCG/2 ML VIAL IVP PRN (18:06)
[2020-11-24] MEDS ORDERED: HYDROmorphone 0.5 MG/0.5 ML SYRINGE IVP PRN (18:06)
[2020-11-24] MEDS ORDERED: NALOXONE 0.4 MG/ML VIAL IVP PRN (18:06)
[2020-11-24] MEDS ORDERED: LACTATED RINGERS 1,000 ML IV SCH (19:00)
[2020-11-24 20:19] VITALS: BP 106/57
== END 2020-11-24 21:45 | disposition home or self-care (01) ==
LOC: ED 09:56 → SDS 13:01 → MS2 18:44 → SDS 21:45
PROVIDERS: ATTEND Surgery
PROC: 0DTJ4ZZ Resection of Appendix, Percutaneous Endoscopic Approach (ICD-10-PCS; principal; 2020-11-24 16:30)
DX: K35.80 Unspecified acute appendicitis (principal); Z20.822 Contact with and (suspected) exposure to COVID-19
CPT/HCPCS: 0202U; 36415; 44970; 80053; 83690; 85025; 99284; 99285; A9270; J0131; J1170; J7120; 87635

== ENCOUNTER 2021-09-07 16:00 | Emergency (ER) | payer OTHER ==
[2021-09-07] MEDS ORDERED: SODIUM CHLORIDE 0.9% 1,000 ML IV STA (16:07)
--- NOTE | 2021-09-07 16:07 | ED Physician Documentation ---
History of Present Illness - Stated complaint Stated Complaint: LIGHT HEADED - Additonal information Additional information: 21-year-old male is [facility] for evaluation of a near syncopal episode. He was undergoing his fitness test. He was pushing himself rather hard began to feel lightheaded dizzy and developed a headache. He had to lay down in fact he had to lay back to avoid fainting. About 5 or 10 minutes afterwards he began to feel better the headache subsided and he no longer felt lightheaded. At that time EMS had been summoned. He describes himself is a former smoker. Denies alcohol or drug use. He admits that he rarely works out and was pushing himself hard. He does not have any previous family history of sudden or early cardiac disease or . Denies any history of hypertension. Is taking no routinely prescribed medications Review of Systems Constitutional: denies: Fever, Chills Eyes: reports: Decreased vision. denies: Loss of vision Ears: reports: Reviewed and negative Throat: reports: Reviewed and negative Cardiac: denies: Chest pain / pressure, Palpitations Respiratory: denies: Dyspnea, Cough GI: reports: Reviewed and negative : reports: Reviewed and negative Skin: reports: Reviewed and negative Musculoskeletal: reports: Reviewed and negative Neurologic: reports: Near syncope, Headache Psychiatric: reports: Reviewed and negative PD PAST MEDICAL HISTORY - Past Medical History Cardiovascular: Hypertension Respiratory: None Neuro: None Endocrine/Autoimmune: None GI: None : None HEENT: None Psych: None Musculoskeletal: None Derm: None - Past Surgical History Past Surgical History: No - Present Medications Home Medications: Ambulatory Orders Medication Instructions Recorded Confirmed Lisinopril [Zestril] 10 mg PO DAILY 11/23/20 11/23/20 Docusate Sodium 100Mg Capsule 100 mg PO DAILY #7 cap 11/24/20 [Colace 100Mg Capsule] Ondansetron Odt [Zofran Odt] 4 mg TL Q6H PRN #10 tablet 11/24/20 Ondansetron Odt [Zofran Odt] 4 mg TL Q6H PRN #10 tablet 11/24/20 oxyCODONE [Roxicodone] 5 mg PO Q6H PRN #7 tablet 11/24/20 oxyCODONE [Roxicodone] 5 mg PO Q6H PRN #7 tablet 11/24/20 - Allergies Allergies/Adverse Reactions: Allergies Allergy/AdvReac Type Severity Reaction Status Date / Time No Known Drug Allergies Allergy Verified 09/07/21 16:16 - Social History Does the pt smoke?: No Smoking Status: Never smoker Does the pt drink ETOH?: No Does the pt have substance abuse?: No - Immunizations Immunizations are current?: No Immunizations: Other immun not current - POLST Patient has POLST: No PD ED PE NORMAL - General General: Alert and oriented X 3, No acute distress, Well developed/nourished - HEENT HEENT: Atraumatic, Moist mucous membranes, Pharynx benign - Neck Neck: Supple, no meningeal sign, No adenopathy - Cardiac Cardiac: RRR, No murmur - Respiratory Respiratory: No respiratory distress, Clear bilaterally - Abdomen Abdomen: Normal bowel sounds, Soft, Non tender - Back Back: No CVA TTP, No spinal TTP - Derm Derm: Normal color, Warm and dry, No rash - Extremities Extremities: No deformity, No tenderness to palpate, Normal ROM s pain - Neuro Neuro: Alert and oriented X 3, organic section technical lead 2-12 intact Eye Opening: Spontaneous Motor: Obeys Commands Verbal: Oriented GCS Score: 15 Results - Vitals Vitals: Vital Signs - 24 hr 09/07/21 09/07/21 16:01 16:48 Temperature 36.6 C Heart Rate 115 H 110 H Heart Rate [ 102 H Sitting] Heart Rate [ 94 Standing] Heart Rate [ 106 H Supine] Respiratory 18 20 Rate Blood Pressure 118/62 119/73 Blood Pressure 112/69 [Sitting] Blood Pressure 119/73 [Standing] Blood Pressure 104/54 L [Supine] O2 Saturation 99 100 Oxygen O2 Source Room air - EKG (time done) 1605 Rate: Rate (enter#) (105) Rhythm: Sinus tachycardia [place]: Normal Intervals: Normal LA QRS: Normal Ischemia: Normal ST segments Compare to prior EKG: Old EKG unavailable Computer interpretation: Agree with computer - Labs Labs: Laboratory Tests 09/07/21 09/07/21 09/07/21 16:11 16:11 16:11 WBC 11.6 H RBC 5.42 Hgb 16.1 Hct 48.5 MCV 89.5 MCH 29.7 MCHC 33.2 RDW 13.1 Plt Count 291 MPV 9.1 Neut # (Auto) 9.8 H Lymph # (Auto) 0.9 L [place] # (Auto) 0.7 Eos # (Auto) 0.1 Baso # (Auto) 0.0 Absolute Nucleated RBC 0.00 Nucleated RBC % 0.0 Sodium 136 Potassium 3.9 Chloride 100 L Carbon Dioxide 21 Anion Gap 15.0 H BUN 15 Creatinine 1.2 Estimated GFR (MDRD) 75 L Glucose 93 Calcium 9.6 Total Bilirubin 0.6 AST 30 ALT 27 Alkaline Phosphatase 65 Troponin I High Sens 7.3 Total Protein 8.0 Albumin 4.6 Globulin 3.4 Albumin/Globulin Ratio 1.4 Lipase 34 PD MEDICAL DECISION MAKING - ED course Complexity details: reviewed results, re-evaluated patient, considered di fferential, d/w patient ED course: 21-year-old male presents emergency department for evaluation of a near syncopal event that occurred while he was completing his fitness test for the [employer]. He admits that he rarely works out and he was reportedly not going to fail it. He began to feel lightheaded, dizzy and developed a headache. The symptoms fully resolved after laying down about 5 minutes. Presentation to the emergency department he is alert well-appearing. No focal deficits. Screening age EKG does show a mild sinus tachycardia though this is resolved with IV fluids here in the emergency department. By Wells criteria he is low risk for a PE. In addition he denies any dyspnea or chest pain. His EKG is sinus without any electrical conduction abnormalities to suggest WPW. Screening labs, CBC electrolytes and high-sensitivity troponin are negative. Chest x-ray was also unremarkable. Orthostatics are unremarkable I suspect that this gentleman had a near syncopal episode in the setting of deconditioning. He is advised close follow-up with [employer] medical. Emergent return precautions were discussed for worsening symptoms, chest pain and severe dyspnea. Departure - Departure Disposition: 01 Home, Self Care Clinical Impression: Near syncope Condition: Stable Record reviewed to determine appropriate education?: Yes Instructions: ED Near Syncope Unkn Comments: Cecil you are seen today in the emergency department after a near fainting episode while completing your exercise fitness test for the [employer]. Here in the emergency department your screening EKG, chest x-ray and labs are all essentially normal. Your vital signs checked in different positions were also unremarkable. It is likely that you are deconditioned and were simply exerting yourself too hard. I would like you to discuss [place] If at any point you develop sudden severe chest pain, have any fainting episodes, or develop severe shortness of air then please return immediately to the ER for second evaluation.
[2021-09-07 16:18] LABS: BASOPHILS % (AUTO) 0.3 %; EOSINOPHILS # (AUTO) 0.1 10^3/uL (0.0-0.7); EOSINOPHILS % (AUTO) 1.2 %; HCT - HEMATOCRIT 48.5 % (42.0-52.0); HGB - HEMOGLOBIN 16.1 g/dL (14.0-18.0); LYMPHOCYTES # (AUTO) 0.9 10^3/uL (1.5-3.5); LYMPHOCYTES % (AUTO) 7.6 %; MEAN CORPUSCULAR HEMOGLOBIN 29.7 pg (27.0-31.0); MEAN CORPUSCULAR HGB CONC 33.2 g/dL (32.0-36.0); MEAN CORPUSCULAR VOLUME 89.5 fL (80.0-94.0); MEAN PLATELET VOLUME 9.1 fL (7.4-11.4); MONOCYTES # (AUTO) 0.7 10^3/uL (0.0-1.0); MONOCYTES % (AUTO) 6.1 %; NEUTROPHILS # (AUTO) 9.8 10^3/uL (1.5-6.6); NEUTROPHILS % (AUTO) 84.4 %; PLT - PLATELET COUNT 291 10^3/uL (130-450); RED BLOOD COUNT 5.42 10^6/uL (4.70-6.10); RED CELL DISTRIBUTION WIDTH 13.1 % (12.0-15.0); WHITE BLOOD COUNT 11.6 x10^3/uL (4.8-10.8)
--- NOTE | 2021-09-07 16:29 | XRAY Report ---
PROCEDURE: Chest 1 View X-Ray INDICATIONS: Chest Pain TECHNIQUE: One view of the chest was acquired. COMPARISON: None. FINDINGS: Surgical changes and devices: None. Lungs and pleura: No pleural effusions or pneumothorax. Lungs are clear. Mediastinum: Mediastinal contours appear normal. Heart size is normal. Bones and chest wall: No suspicious bony lesions. Overlying soft tissues appear unremarkable. IMPRESSION: No acute cardiopulmonary process demonstrated radiographically. Reviewed by: Nathaniel Vicente MD on 09/07/2021 4:27 PM PDT Approved by: Nathaniel Vicente MD on 09/07/2021 4:27 PM PDT Station ID: [id number]
[2021-09-07 16:31] LABS: ALBUMIN 4.6 g/dL (3.2-5.5); ALBUMIN/GLOBULIN RATIO 1.4 (1.0-2.2); BILIRUBIN,TOTAL 0.6 mg/dL (0.2-1.0); CALCIUM 9.6 mg/dL (8.5-10.3); CREATININE 1.2 mg/dL (0.6-1.2); POTASSIUM 3.9 mmol/L (3.5-5.0)
[2021-09-07 17:28] VITALS: BP 113/70
== END 2021-09-07 17:34 | disposition home or self-care (01) ==
LOC: EDUNIT# → ED 16:00
DX: R55 Syncope and collapse (principal); I10 Essential (primary) hypertension
CPT/HCPCS: 36415; 80053; 83690; 84484; 85025; 93005; 96360; 99282